=== PATIENT | male | born 1945 | race Caucasian/White ===

== ENCOUNTER → 2021-02-23 | Outpatient (CLI) | payer OTHER ==
[~2021-02-23] MED LIST: BLACK ELDERBER1 EACH PO; CINNAMON500 MG PO; COD LIVER OIL1 EACH PO; FUROSEMIDE 40 M40 MG PO; GINKGO BILOBA500 MG PO; GLIMEPIRIDE4 MG PO; GLUMETZA1000 PO; KLOR-CON 10 ER10 MEQ PO; LEVO-T50 MCG PO; LUTEIN 15 MG S1 EACH PO; NIACIN 500 MG500 M1 PO; PROBIOTIC1 EAC7 PO; SIMVASTATIN40 MG PO; TAMSULOSIN HCL0.4 MG PO; TURMERIC500 M2 PO; VITAMIN D310 MCG PO; VITAMIN E100 UNIT PO; ZESTRIL10 MG PO; ZINC GLUCONATE100 MG PO
== END ==
LOC: LAB 09:29
PROVIDERS: ATTEND Internal Medicine Gastroenterology
DX: Z01.812 Encounter for preprocedural laboratory examination (principal); Z20.822 Contact with and (suspected) exposure to COVID-19

== ENCOUNTER → 2021-02-27 | Outpatient (CLI) | payer OTHER | END | disposition home or self-care (01) | LOC: GI 08:08 → PRE 11:29 → EDSTATUS 11:29 → GI 11:37 | PROVIDERS: ATTEND Internal Medicine Gastroenterology | DX: D64.9 Anemia, unspecified (principal); Z98.890 Other specified postprocedural states; Z79.899 Other long term (current) drug therapy; Z88.0 Allergy status to penicillin ==